=== PATIENT | female | born 2000 | race Caucasian/White ===

== ENCOUNTER 2025-07-19 11:23 | Emergency (ER) | payer BC, OTHER ==
[~2025-07-19] VITALS: Ht 175.3 cm; Wt 109.1 kg
[2025-07-19 15:07] VITALS: BP 122/77; TEMP 99.7; O2SAT 96
== END 2025-07-19 15:12 | disposition home or self-care (01) ==
LOC: M ED 11:23
DX: S80.911A Unspecified superficial injury of right knee, initial encounter (principal); X50.0XXA Overexertion from strenuous movement or load, initial encounter; Y92.89 Other specified places as the place of occurrence of the external cause; Y93.89 Activity, other specified; Y99.9 Unspecified external cause status

== ENCOUNTER → 2025-07-23 | Outpatient (CLI) | payer BC | LOC: M PLARAD 09:11 | PROVIDERS: ATTEND Orthopaedic Surgery | DX: S83.511A Sprain of anterior cruciate ligament of right knee, initial encounter (principal); M25.461 Effusion, right knee; M67.51 Plica syndrome, right knee; R60.0 Localized edema; X58.XXXA Exposure to other specified factors, initial encounter; Y92.9 Unspecified place or not applicable; Y93.9 Activity, unspecified; Y99.9 Unspecified external cause status ==